=== PATIENT | male | born 1950 | race Native Hawaiian/Other Pacific Islander ===

== ENCOUNTER 2017-12-27 09:27 | Outpatient (CLI) | payer BC | END 2017-12-27 21:27 | disposition home or self-care (01) | LOC: RAD 09:27 | DX: M54.12 Radiculopathy, cervical region (principal); M54.6 Pain in thoracic spine ==

== ENCOUNTER 2019-09-16 09:15 | Outpatient (CLI) | payer OTHER | END 2019-09-16 19:12 | disposition home or self-care (01) | LOC: RAD 09:15 | DX: N20.2 Calculus of kidney with calculus of ureter (principal) ==

== ENCOUNTER 2019-10-26 16:40 | Emergency (ER) | payer OTHER ==
[~2019-10-26] VITALS: Ht 172.7 cm; Wt 104.3 kg
[2019-10-26 18:06] VITALS: BP 160/71; TEMP 98.7
== END 2019-10-26 18:09 | disposition home or self-care (01) ==
LOC: ED 16:40
PROC: 0HQJXZZ Repair Left Upper Leg Skin, External Approach (ICD-10-PCS; principal; 2019-10-26)
DX: S71.112A Laceration without foreign body, left thigh, initial encounter (principal); X58.XXXA Exposure to other specified factors, initial encounter
CPT/HCPCS: 90471; 90715; 96372; 99283; J0696

== ENCOUNTER 2019-11-25 14:48 | Outpatient (CLI) | payer OTHER | END 2019-11-25 19:19 | disposition home or self-care (01) | LOC: RAD 14:48 | DX: S61.239A Puncture wound without foreign body of unspecified finger without damage to nail, initial encounter (principal) ==

== ENCOUNTER 2020-08-07 08:42 | Outpatient (CLI) | payer OTHER ==
[2020-08-07 09:21] LABS: POTASSIUM 3.7 mmol/L (3.6-5.2)
== END 2020-08-07 19:15 | disposition home or self-care (01) ==
LOC: LABW 08:42
PROVIDERS: ATTEND Nurse Practitioner Family
DX: K57.92 Diverticulitis of intestine, part unspecified, without perforation or abscess without bleeding (principal)
CPT/HCPCS: 36415; 80053; Q9963

== ENCOUNTER 2022-03-11 15:20 | Outpatient (CLI) | payer OTHER ==
[~2022-03-11] VITALS: Ht 170.2 cm; Wt 105.2 kg
[2022-03-11 15:49] VITALS: BP 144/56; TEMP 98.8
[2022-03-11 16:25] VITALS: BP 138/66; TEMP 98.7
--- NOTE | 2022-03-11 16:30 | NUR ---
1549 PT AMBULATED TO ROOM 1128 FOR OP INFUSION. VS OBTAINED 22G PIV TO LH X 1 ATTEMPT. PT TOLERATED WITH NO COMPLAINTS. 1610 BEBTELOVIMAB IVP OVER 30 SECONDS FOLLOWED BY 10ML NS. PT TOLERATED WITH NO COMPLICATIONS WILL MONITOR VS PER ORDERS 1625 PT TOLERATED INFUSION WITH NO ADVERSE REACTIONS NOTED AT THIS TIME. PT AMBULATED TO RESTROOM WITH NO ASSISTANCE.
[2022-03-11 16:40] VITALS: BP 136/60; TEMP 98
[2022-03-11 17:10] VITALS: BP 151/60; TEMP 98
--- NOTE | 2022-03-11 17:15 | NUR ---
PT'S VS POST IV INFUSION WNL. PT DENIES ANY CO AT THIS TIME. IV SL DC'D FROM LEFT HAND AND ROUTINE SITE CARE GIVEN. PT LEFT AMBUALTORY WITHOUT ANY PROBLEMS NOTED
== END 2022-03-11 23:40 | disposition home or self-care (01) ==
LOC: INF 15:20
PROVIDERS: ATTEND Family Medicine
DX: Z23 Encounter for immunization (principal); U07.1 COVID-19
CPT/HCPCS: 96374; Q0222

== ENCOUNTER 2022-04-13 08:46 | Outpatient (CLI) | payer OTHER | END 2022-04-13 19:35 | disposition home or self-care (01) | LOC: CT 08:46 | PROVIDERS: ATTEND Internal Medicine | DX: K57.92 Diverticulitis of intestine, part unspecified, without perforation or abscess without bleeding (principal) | CPT/HCPCS: 36415; 82565; 84520; Q9963 ==

== ENCOUNTER 2022-05-16 15:31 | Outpatient (CLI) | payer OTHER | END 2022-05-16 19:56 | disposition home or self-care (01) | LOC: RAD 15:31 | PROVIDERS: ATTEND Family Medicine | DX: M81.0 Age-related osteoporosis without current pathological fracture (principal) ==

== ENCOUNTER 2022-07-10 14:08 | Observation (INO) | payer OTHER ==
[~2022-07-10] VITALS: Ht 172.7 cm; Wt 105.7 kg
[2022-07-10 14:20] VITALS: BP 147/58; TEMP 98.8
[2022-07-10 14:59] LABS: PLATELET COUNT 147 K/uL (142-355)
[2022-07-10 15:21] LABS: PARTIAL THROMBOPLASTIN TIME 25.9 SECONDS (24.5-33.6)
[2022-07-11] VITALS: BP 131/65; TEMP 98.3
[2022-07-11 00:06] VITALS: BP 131/65; TEMP 98.3
[2022-07-11 02:26] VITALS: BP 144/66; TEMP 98.8; Ht 172.7 cm; Wt 105.7 kg
[2022-07-11 04:00] VITALS: BP 132/66; TEMP 98.6
[2022-07-11 08:00] VITALS: BP 144/82; TEMP 98.8
[2022-07-11 10:39] LABS: PLATELET COUNT 127 K/uL (142-355)
[2022-07-11 10:43] LABS: POTASSIUM 3.7 mmol/L (3.6-5.2)
[2022-07-11 12:00] VITALS: BP 137/76; TEMP 98.4
[2022-07-11] MEDS ORDERED: CLOP75TA2 PO (12:23)
[2022-07-11] MEDS ORDERED: Z-PAK PO (12:23)
[2022-07-11] MEDS ORDERED: BENAZEPRIL HYDR40 MG PO (12:24)
[2022-07-11] MEDS ORDERED: HYDRALAZINE50 MG PO (12:25)
[2022-07-11] MEDS ORDERED: ROPINIROLE2 M1 PO (12:26)
[2022-07-11] MEDS ORDERED: AMLODIPINE BESYLATE PO (12:27)
[2022-07-11] MEDS ORDERED: PANTOPRAZOLE 40MG TA PO (12:27)
[2022-07-11] MEDS ORDERED: REPATHA SUR140 MG/ML SC (12:28)
[2022-07-11] MEDS ORDERED: GLIP10TA55 PO (12:28)
[2022-07-11] MEDS ORDERED: ASA LOW DOSE81 MG PO (12:29)
[2022-07-11] MEDS ORDERED: METFORMIN HYD1000 MG PO (12:29)
[2022-07-11] MEDS ORDERED: HYDR25TA60 PO (12:31)
== END 2022-07-11 15:08 | disposition home or self-care (01) ==
LOC: ED 14:08 → MED/SURG 20:40
PROVIDERS: ADMIT Family Medicine; ATTEND Family Medicine
DX: K52.89 Other specified noninfective gastroenteritis and colitis (principal); E87.6 Hypokalemia; R19.7 Diarrhea, unspecified; I25.10 Atherosclerotic heart disease of native coronary artery without angina pectoris; K21.9 Gastro-esophageal reflux disease without esophagitis; I10 Essential (primary) hypertension; G47.39 Other sleep apnea; E11.65 Type 2 diabetes mellitus with hyperglycemia; E78.49 Other hyperlipidemia; E86.0 Dehydration; Z79.899 Other long term (current) drug therapy; Z51.81 Encounter for therapeutic drug level monitoring
CPT/HCPCS: 36415; 80053; 80307; 81002; 82150; 82550; 83690; 83735; 84100; 84484; 85027; 85610; 85730; 87015; 87040; 87045; 87328; 87329; 87635; 87899; 93005; 96360; 96361; 96365; 96366; 96367; 96375; 99220; 99284; G0378; J2405; J2543; J2765; J3490; Q9963; U0003

== ENCOUNTER 2023-01-26 09:34 | Outpatient (CLI) | payer OTHER ==
[~2023-01-26 09:34] MED LIST: AMLODIPINE BESYLATE PO; ASA LOW DOSE81 MG PO; BENAZEPRIL HYDR40 MG PO; CLOP75TA2 PO; GLIP10TA55 PO; HYDR25TA60 PO; HYDRALAZINE50 MG PO; METFORMIN HYD1000 MG PO; PANTOPRAZOLE 40MG TA PO; REPATHA SUR140 MG/ML SC; ROPINIROLE2 M1 PO; Z-PAK PO
== END 2023-01-26 19:19 | disposition home or self-care (01) ==
LOC: RAD 09:34
PROVIDERS: ATTEND Nurse Practitioner Family
DX: M25.552 Pain in left hip (principal); Z98.890 Other specified postprocedural states; W01.0XXA Fall on same level from slipping, tripping and stumbling without subsequent striking against object, initial encounter